=== PATIENT | male | born 1950 | race Caucasian/White ===

== ENCOUNTER → 2017-10-15 | Outpatient (CLI) | payer MEDICARE | END | disposition home or self-care (01) | LOC: MRI 07:43 | DX: M47.896 Other spondylosis, lumbar region (principal); M48.061 Spinal stenosis, lumbar region without neurogenic claudication; G89.29 Other chronic pain | CPT/HCPCS: 72148 ==

== ENCOUNTER → 2017-10-21 | Outpatient (CLI) | payer MEDICARE ==
[2017-10-21 15:27] LABS: ADD MAN DIFF? NO
[2017-10-21 15:30] LABS: BASO # 0.1 x10^3/uL (0.0-0.2); BASO % 1 % (0-3); EOS # 0.1 x10^3/uL (0.0-0.7); EOS % 1 % (0-3); HEMATOCRIT 42.4 % (39.0-53.0); HEMOGLOBIN 14.4 g/dL (13.0-17.5); LYMPH # 1.9 x10^3/uL (1.0-4.8); LYMPH % 25 % (24-48); MEAN CORPUSCULAR HEMOGLOBIN 29 pg (25-35); MEAN CORPUSCULAR HGB CONC 34 g/dL (31-37); MEAN CORPUSCULAR VOLUME 84 fL (79-100); MONO # 0.6 x10^3/uL (0.0-1.1); MONO % 8 % (0-9); NEUT # 4.8 x10^3uL (1.8-7.7); NEUT % 65 % (31-73); PLATELET COUNT 255 x10^3/uL (140-400); RED BLOOD COUNT 5.03 x10^6/uL (4.30-5.70); RED CELL DISTRIBUTION WIDTH 14.4 % (11.5-14.5); WHITE BLOOD COUNT 7.4 x10^3/uL (4.0-11.0)
[2017-10-21 15:48] LABS: ALBUMIN 3.8 g/dL (3.4-5.0); ALK PHOS 75 U/L (46-116); ALT (SGPT) 41 U/L (16-63); ANION GAP 9 (6-14); AST (SGOT) 20 U/L (15-37); BLOOD UREA NITROGEN 16 mg/dL (8-26); BUN/CREATININE RATIO 18 (6-20); CALCIUM 9.5 mg/dL (8.5-10.1); CARBON DIOXIDE 30 mmol/L (21-32); CHLORIDE 99 mmol/L (98-107); CREATININE 0.9 mg/dL (0.7-1.3); GFR 84.4; GLUCOSE 105 mg/dL (70-99); POTASSIUM 4.1 mmol/L (3.5-5.1); SODIUM 138 mmol/L (136-145); TOTAL BILIRUBIN 0.3 mg/dL (0.2-1.0); TOTAL PROTEIN 7.8 g/dL (6.4-8.2)
[2017-10-22 03:17] LABS: MRSA BY PCR Negative (Negative)
== END | disposition home or self-care (01) ==
LOC: SURGPAT 13:19
DX: Z01.818 Encounter for other preprocedural examination (principal); M51.16 Intervertebral disc disorders with radiculopathy, lumbar region
CPT/HCPCS: 36415; 80053; 85025; 87641; 93005

== ENCOUNTER 2017-10-24 10:58 | Day surgery (SDC) | payer MEDICARE ==
[~2017-10-24 10:58] MED LIST: IV RINGERS,LACTATED 1000ML 1,000 ML IV; LIDOCAINE 1% PF 2 ML VIAL. ID; LIDOCAINE 2% PF Vial for OR 5 ML VIAL.; MORPHINE SULFATE 4 MG/ML DISP.SYRIN. IV; ONDANSETRON PF 4 MG/2 ML VIAL. IV; PROCHLORPERAZINE 10 MG/2 ML VIAL. IV; PROPOFOL 20 ML IV; REMIFENTANIL 2 MG VIAL. IV; ROCURONIUM 50 MG/5 ML VIAL.; fentaNYL PF VIAL 100 MCG/2 ML VIAL; fentaNYL PF VIAL 100 MCG/2 ML VIAL IV
[2017-10-24] MEDS ORDERED: MIDAZOLAM HCL/PF 2 MG/2 ML VIAL. (13:14)
[2017-10-24] MEDS ORDERED: MINERAL OIL/PETROLATUM,WHITE OPHTH OINT 3.5GM TUBE. (13:26)
[2017-10-24] MEDS ORDERED: PROPOFOL 50 ML IV (13:46)
[2017-10-24] MEDS: BUPIVAC MPF-EPI 0.5%-1:200000 30 ML VIAL. INJ (14:10)
[2017-10-24] MEDS: KETOROLAC 60 MG/2 ML INJ FOR OR. (14:10)
[2017-10-24] MEDS: GELATIN SPONGE SIZE 100. (14:10)
[2017-10-24] MEDS: BACITRACIN 50,000 UNIT in IV NORMAL SALINE 1000ML BAG 1,000 ML IRR (14:10)
[2017-10-24] MEDS: THROMBIN TOPICAL 20,000 UNIT SPRAY.SYRN KIT TP (14:10)
[2017-10-24] MEDS ORDERED: PHENYLEPHRINE 10 MG/ML VIAL. (14:21)
[2017-10-24] MEDS ORDERED: GLYCOPYRROLATE 1 MG/5 ML VIAL. (15:00)
[2017-10-24] MEDS: fentaNYL PF VIAL 100 MCG/2 ML VIAL IV (16:02)
[2017-10-24] MEDS ORDERED: HYDROcodone/APAP 7.5/325MG 1 TAB TABLET (16:18)
[2017-10-24] MEDS: HYDROcodone/APAP 7.5/325MG 1 TAB TABLET PO (16:28)
== END 2017-10-24 17:38 | disposition home or self-care (01) ==
LOC: SURG 10:58
DX: M54.16 Radiculopathy, lumbar region (principal); M48.061 Spinal stenosis, lumbar region without neurogenic claudication; I10 Essential (primary) hypertension; H40.89 Other specified glaucoma; M19.90 Unspecified osteoarthritis, unspecified site; Z72.0 Tobacco use; Z98.890 Other specified postprocedural states
CPT/HCPCS: 63047; 76000; 97161-GP; J1885; J2250; J2704; J3010; J3490; J7030

== ENCOUNTER → 2018-11-18 | Outpatient (CLI) | payer MEDICARE ==
[2017-10-24 17:00] VITALS: BP 178/89
[~2018-11-18] MED LIST changes: +ACET325T9 PO; +HYDR-2765 PO; -IV RINGERS,LACTATED 1000ML 1,000 ML IV; -LIDOCAINE 1% PF 2 ML VIAL. ID; -LIDOCAINE 2% PF Vial for OR 5 ML VIAL.; +LISI1TAB7 PO; +LISI2.5T PO; +METH-38 PO; -MORPHINE SULFATE 4 MG/ML DISP.SYRIN. IV; -ONDANSETRON PF 4 MG/2 ML VIAL. IV; -PROCHLORPERAZINE 10 MG/2 ML VIAL. IV; -PROPOFOL 20 ML IV; -REMIFENTANIL 2 MG VIAL. IV; -ROCURONIUM 50 MG/5 ML VIAL.; -fentaNYL PF VIAL 100 MCG/2 ML VIAL; -fentaNYL PF VIAL 100 MCG/2 ML VIAL IV
--- NOTE | 2018-11-19 09:58 | SLEEP ---
DATE OF STUDY: PRIMARY CARE PHYSICIAN: Not available. REFERRING PHYSICIAN: Sunny Quinteros MD The patient is 68 years old, who weighs 218 pounds with a BMI of 33. The patient's [place] score was 10. The patient underwent split night study at [facility]. During the night study, the patient spent 412 minutes in bed and slept for 362 minutes with a sleep efficiency of 88%. Sleep latency was 26 minutes with a REM latency of 99 minutes. Overall, sleep architecture showed normal stage I and stage 2 sleep, increased N3 sleep and normal REM sleep. During the initial diagnostic portion of the study, the patient slept for 74 minutes. During that time, there were 74 obstructive apneas, 2 mixed apneas, no central apneas and 42 hypopneas. The patient's apnea-hypopnea index was 96 per hour. Supine or REM sleep was not seen during the diagnostic portion. EKG monitoring revealed normal sinus rhythm. Average heart rate 65 beats per minute, no sustained arrhythmias observed. Nocturnal oximetry study during the diagnostic portion revealed an average oxygen saturation of 94% with the lowest of 76%. A 31% of time oxygen saturation remained between 80% and 89%. PLMS were seen at index of 33 per hour and 3 per hour caused EEG arousals. The patient met the criteria for CPAP initiation. It was started at 5 cm water and titrated up to 18 cm water. At the final pressure, the patient slept for 71 minutes. The patient's AHI was reduced to 1 per hour and oxygen saturation remained above 88%. The patient had supine as well as REM sleep. The patient used small sized full face mask. IMPRESSION: 1. Severe sleep apnea-hypopnea syndrome at an AHI of 96 per hour. 2. Nocturnal hypoxia secondary to obstructive sleep apnea, which resolved with CPAP. 3. 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 RECOMMENDATIONS: 1. CPAP at 18 cm water completely eliminated the patient's sleep apnea, should be used on a nightly basis. 2. Follow up in 4-6 weeks to assess compliance with CPAP and to document clinical improvement. 3. Weight loss is strongly advised. 4. Avoid NEGATIVE RESTORER depressants. 5. Cautioned regarding driving until symptoms of sleep apnea resolve with the use of CPAP. 6. The patient should also be further evaluated for symptoms of restless legs during the day. SUNNY QUINTEROS MD DR: Sheba JOB#: [id number] / [id number]
--- NOTE | 2018-11-20 16:09 | SLEEP ---
DATE OF STUDY: 11/18/2018 PRIMARY CARE PHYSICIAN: Not available. REFERRING PHYSICIAN: Sunny Quinteros MD The patient is 68 years old, who weighs 218 pounds with a BMI of 33. The patient's [place] score was 10. The patient underwent split night study at [facility]. During the night study, the patient spent 412 minutes in bed and slept for 362 minutes with a sleep efficiency of 88%. Sleep latency was 26 minutes with a REM latency of 99 minutes. Overall, sleep architecture showed normal stage I and stage 2 sleep, increased N3 sleep and normal REM sleep. During the initial diagnostic portion of the study, the patient slept for 74 minutes. During that time, there were 74 obstructive apneas, 2 mixed apneas, no central apneas and 42 hypopneas. The patient's apnea-hypopnea index was 96 per hour. Supine or REM sleep was not seen during the diagnostic portion. EKG monitoring revealed normal sinus rhythm. Average heart rate 65 beats per minute, no sustained arrhythmias observed. Nocturnal oximetry study during the diagnostic portion revealed an average oxygen saturation of 94% with the lowest of 76%. A 31% of time oxygen saturation remained between 80% and 89%. PLMS were seen at index of 33 per hour and 3 per hour caused EEG arousals. The patient met the criteria for CPAP initiation. It was started at 5 cm water and titrated up to 18 cm water. At the final pressure, the patient slept for 71 minutes. The patient's AHI was reduced to 1 per hour and oxygen saturation remained above 88%. The patient had supine as well as REM sleep. The patient used small sized full face mask. IMPRESSION: 1. Severe sleep apnea-hypopnea syndrome at an AHI of 96 per hour. 2. Nocturnal hypoxia secondary to obstructive sleep apnea, which resolved with CPAP. 3. 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 RECOMMENDATIONS: 1. CPAP at 18 cm water completely eliminated the patient's sleep apnea, should be used on a nightly basis. 2. Follow up in 4-6 weeks to assess compliance with CPAP and to document clinical improvement. 3. Weight loss is strongly advised. 4. Avoid MUFFL[employer]IC depressants. 5. Cautioned regarding driving until symptoms of sleep apnea resolve with the use of CPAP. 6. The patient should also be further evaluated for symptoms of restless legs during the day. SUNNY QUINTEROS MD DR: Sheba JOB#: [id number] / [id number]
--- NOTE | 2018-11-20 16:17 | SLEEP ---
DATE OF STUDY: 11/18/2018 PRIMARY CARE PHYSICIAN: Not available. REFERRING PHYSICIAN: Sunny Quinteros MD The patient is 68 years old, who weighs 218 pounds with a BMI of 33. The patient's [place] score was 10. The patient underwent split night study at [facility]. During the night study, the patient spent 412 minutes in bed and slept for 362 minutes with a sleep efficiency of 88%. Sleep latency was 26 minutes with a REM latency of 99 minutes. Overall, sleep architecture showed normal stage I and stage 2 sleep, increased N3 sleep and normal REM sleep. During the initial diagnostic portion of the study, the patient slept for 74 minutes. During that time, there were 74 obstructive apneas, 2 mixed apneas, no central apneas and 42 hypopneas. The patient's apnea-hypopnea index was 96 per hour. Supine or REM sleep was not seen during the diagnostic portion. EKG monitoring revealed normal sinus rhythm. Average heart rate 65 beats per minute, no sustained arrhythmias observed. Nocturnal oximetry study during the diagnostic portion revealed an average oxygen saturation of 94% with the lowest of 76%. A 31% of time oxygen saturation remained between 80% and 89%. PLMS were seen at index of 33 per hour and 3 per hour caused EEG arousals. The patient met the criteria for CPAP initiation. It was started at 5 cm water and titrated up to 18 cm water. At the final pressure, the patient slept for 71 minutes. The patient's AHI was reduced to 1 per hour and oxygen saturation remained above 88%. The patient had supine as well as REM sleep. The patient used small sized full face mask. IMPRESSION: 1. Severe sleep apnea-hypopnea syndrome at an AHI of 96 per hour. 2. Nocturnal hypoxia secondary to obstructive sleep apnea, which resolved with CPAP. 3. 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 RECOMMENDATIONS: 1. CPAP at 18 cm water completely eliminated the patient's sleep apnea, should be used on a nightly basis. 2. Follow up in 4-6 weeks to assess compliance with CPAP and to document clinical improvement. 3. Weight loss is strongly advised. 4. Avoid DYED RAW STOCK BLOWER FEEDER depressants. 5. Cautioned regarding driving until symptoms of sleep apnea resolve with the use of CPAP. 6. The patient should also be further evaluated for symptoms of restless legs during the day. SUNNY QUINTEROS MD DR: Sheba JOB#: [id number] / [id number]
== END | disposition home or self-care (01) ==
LOC: SLPLAB 18:50
PROVIDERS: ATTEND Internal Medicine Critical Care Medicine
DX: G47.33 Obstructive sleep apnea (adult) (pediatric) (principal)
CPT/HCPCS: 95810

== ENCOUNTER 2020-08-05 19:15 | Emergency (ER) | payer MEDICARE ==
[~2020-08-05] VITALS: Ht 172.7 cm; Wt 100.0 kg
[2020-08-05 19:15] VITALS: BP 124/68
[~2020-08-05 19:15] MED LIST changes: +LISI1TAB20 PO; -LISI1TAB7 PO
[2020-08-05] MEDS ORDERED: TRANEXAMIC ACID 1,000 MG/10 ML VIAL. TOP ONE (20:00)
[2020-08-05] MEDS ORDERED: GELATIN SPONGE SIZE 12-7MM SPONGE. ONE (20:07)
[2020-08-05] MEDS ORDERED: SURGICEL HEMOSTAT 4X8 EACH. TP ONE (20:15)
--- NOTE | 2020-08-05 20:24 | ED.ADGEN ---
Past Medical History Past Medical History: Hypertension, Other Additional Past Medical Histor: covid-19 Past Surgical History: Other Additional Past Surgical Histo: shoulder and knee surgery; left rotator cuff Smoking Status: Former Smoker Alcohol Use: Occasionally Drug Use: None General Adult EDM: Chief Complaint: FINGER INJURY HPI: HPI: Patient is a 70-year-old male who presents to the emergency room complaining of right index finger cut. He was using a mandolin to cut onions and sliced his finger. He has had uncontrollable bleeding since that time. He denies any other injuries. Patient insists tetanus shot has been within the last 5 years. He denies any blood thinners. Review of Systems: Review of Systems: Complete ROS is negative unless otherwise documented in HPI Current Medications: Current Medications Medications (Trade) Dose Ordered Sig/Tanya Start Time Stop Time Status Last Admin Dose Admin Cellulose (Surgicel Hemostat 4x8) 1 each 1X ONCE 08/05/20 20:15 08/05/20 20:16 DC 08/05/20 20:11 1 EACH Gelatin (Gelfoam Size 12-7mm) 1 each STK-MED ONCE 08/05/20 20:07 08/05/20 20:07 DC Tranexamic Acid (Cyklokapron) 1,000 mg 1X ONCE 08/05/20 20:00 08/05/20 20:01 DC 08/05/20 20:11 1,000 MG Allergies: Allergies: Allergies Coded Allergies Type Severity Reaction Last Updated Verified No Known Drug Allergies 10/24/17 No Physical Exam: PE: General: Awake, alert, NAD. Well Nourished, well hydrated. Cooperative HEENT: Atraumatic, EOMI, PERRL, airway patent, moist oral mucosa Neck: Supple, trachea midline Respiratory: CTA bilaterally, normal effort, no wheezing/crackles CV: RRR, no murmur, cap refill <2 GI: Soft, nondistended, nontender, no masses MSK: No obvious deformities Skin: Warm, dry. Right hand: Index finger with a 1x1 avulsion of skin with active venous bleeding. Neuro: A&O x3, speech NL, sensory and motor grossly intact, no focal deficits Psych: Normal affect, normal mood, not suicidal or homicidal Current Patient Data: Vital Signs: Vital Signs Date Time Temp Pulse Resp B/P (MAP) Pulse Ox O2 Delivery O2 Flow Rate FiO2 08/05/20 19:15 98.2 88 16 124/68 (86) 95 Room Air 98.2 EKG: EKG: [] Heart Score: Risk Factors: Risk Factors: DM, Current or recent (<one month) smoker, HTN, HLP, family history of CAD, obesity. Risk Scores: Score 0 - 3: 2.5% MACE over next 6 weeks - Discharge Home Score 4 - 6: 20.3% MACE over next 6 weeks - Admit for Clinical Observation Score 7 - 10: 72.7% MACE over next 6 weeks - Early Invasive Strategies Radiology/Procedures: Radiology/Procedures: [] Course & Med Decision Making: Course & Med Decision Making Pertinent Labs and Imaging studies reviewed. (See chart for details) Patient presents with avulsion to finger. Wound soaked in TXA surgicel. Covered with dermabond. Patient will be discharged home. Patient's test results and vitals while in the ED were fully reviewed and discussed with the patient. Patient is stable and at this time does not need admission to the hospital. We have discussed strict return precautions and the importance of following up with their Primary Care Physician. Patient stated understanding and was given an opportunity to ask any questions. Patient is in agreement with plan. Dragon Disclaimer: Dragon Disclaimer: This electronic medical record was generated, in whole or in part, using a voice recognition dictation system. Departure Departure Impression: Primary Impression: Avulsion, finger tip Disposition: 01 DC HOME SELF CARE/HOMELESS Condition: STABLE Referrals: ALYSHA JAMES MD (PCP) Patient Instructions: Finger Avulsion RAE MCGUIRE MD Aug 05, 2020 20:23
== END 2020-08-05 21:01 | disposition home or self-care (01) ==
LOC: ER 19:15
DX: S61.310A Laceration without foreign body of right index finger with damage to nail, initial encounter (principal); I10 Essential (primary) hypertension; Z87.891 Personal history of nicotine dependence; Z98.890 Other specified postprocedural states; W26.8XXA Contact with other sharp object(s), not elsewhere classified, initial encounter; Y93.89 Activity, other specified; Y92.89 Other specified places as the place of occurrence of the external cause; Y99.8 Other external cause status
CPT/HCPCS: 99283; J3490